=== PATIENT | female | born 1955 | race Caucasian/White ===

== ENCOUNTER → 2016-09-01 | Outpatient (CLI) | payer BC | LOC: FIMAGING 15:49 | DX: Z12.31 Encounter for screening mammogram for malignant neoplasm of breast (principal); Z80.3 Family history of malignant neoplasm of breast | CPT/HCPCS: G0202 ==

== ENCOUNTER → 2016-11-19 | Outpatient (CLI) | payer BC | LOC: FIMAGING 14:13 | PROVIDERS: ATTEND Nurse Practitioner Women's Health | DX: Z13.820 Encounter for screening for osteoporosis (principal); M85.80 Other specified disorders of bone density and structure, unspecified site; Z78.0 Asymptomatic menopausal state ==

== ENCOUNTER → 2017-09-04 | Outpatient (CLI) | payer BC | LOC: FIMAGING 16:06 | PROVIDERS: ATTEND Nurse Practitioner Women's Health | DX: Z12.31 Encounter for screening mammogram for malignant neoplasm of breast (principal); Z80.3 Family history of malignant neoplasm of breast ==

== ENCOUNTER → 2018-09-08 | Outpatient (CLI) | payer BC | LOC: FIMAGING 15:54 | PROVIDERS: ATTEND Nurse Practitioner Women's Health | DX: Z12.31 Encounter for screening mammogram for malignant neoplasm of breast (principal); Z80.3 Family history of malignant neoplasm of breast ==